=== PATIENT | male | born 1940 ===

== ENCOUNTER 2018-03-19 12:09 | Day surgery (SDC) | payer MEDICARE ==
[~2018-03-19 12:09] MED LIST: AK-Dilate ONE; IOPIDINE ONE; MYDRIACYL ONE
[2018-03-19] MEDS ORDERED: IOPIDINE OD ONE (12:25)
[2018-03-19] MEDS ORDERED: AK-Dilate OD ONE (12:26)
[2018-03-19] MEDS ORDERED: MYDRIACYL OD ONE (12:26)
[2018-03-19 13:35] VITALS: BP 112/64
== END 2018-03-19 12:50 | disposition home or self-care (01) ==
LOC: OR 12:09
PROVIDERS: ATTEND Ophthalmology
DX: E11.36 Type 2 diabetes mellitus with diabetic cataract (principal); H26.491 Other secondary cataract, right eye; E11.41 Type 2 diabetes mellitus with diabetic mononeuropathy; E11.22 Type 2 diabetes mellitus with diabetic chronic kidney disease; I13.2 Hypertensive heart and chronic kidney disease with heart failure and with stage 5 chronic kidney disease, or end stage renal disease; I50.9 Heart failure, unspecified; I25.2 Old myocardial infarction; G47.30 Sleep apnea, unspecified; M19.90 Unspecified osteoarthritis, unspecified site; K21.9 Gastro-esophageal reflux disease without esophagitis; F03.90 Unspecified dementia, unspecified severity, without behavioral disturbance, psychotic disturbance, mood disturbance, and anxiety; Z95.5 Presence of coronary angioplasty implant and graft; Z95.0 Presence of cardiac pacemaker; Z79.899 Other long term (current) drug therapy
CPT/HCPCS: 82962